=== PATIENT | male | born 1960 | race Caucasian/White ===

== ENCOUNTER → 2016-05-30 | Outpatient (CLI) | payer OTHER ==
--- NOTE | ~2016-05-30 | US37 ---
[facility] A Service of [facility] RADIOLOGY TEXT RESULTS PATIENT: ELEUTERIO NEWELL LOCATION: CNIV : 64 UNIT #: [id number] AGE: [address]: Shobha Ambrocio MD SEX: M ORDER DR: [id number] [facility] [address] [place], [place] [address] [id number] O MR#: [id number] Acc #: [id number] NAME: ELEUTERIO NEWELL : 1960 SEX: M STUDY DATE/TIME: 05/30/2016 15:40 UNIT: CNIV ROOM: STUDY DESCRIPTION: US Carotid W/Doppler Bilateral Attending Physician: Shobha Ambrocio M.D. Referring Physician: Shobha Ambrocio M.D. Ordering Physician: Shobha Ambrocio M.D. Primary Care Physician: Shobha Ambrocio M.D. MEDICAL IMAGING REPORT This report is preliminary unless electronic signature is present EXAM Carotid duplex scan, 05/30/2016 HISTORY Cervical bruit. FINDINGS The right common carotid artery has no plaque. The right internal and external carotid arteries are patent with minimal plaque. Peak systolic velocity in the distal right internal carotid artery is 93 cm/sec with an end-diastolic velocity of 38 cm/sec. The ICA/CCA ratio on the right is 1.1. Peak systolic velocity in the right external carotid artery is 117 cm/sec. The right vertebral artery is patent with antegrade flow. The left common carotid artery has no plaque. There is a small amount of heterogeneous plaque in the left carotid bulb which extends up into the proximal internal and external carotid arteries. Peak systolic velocity in the mid left internal carotid artery is 78 cm/sec with an end-diastolic velocity of 29 cm/sec. The ICA/CCA ratio on the left is 1.1. Peak systolic velocity in the left external carotid artery is 120 cm/sec. The left vertebral artery is patent with antegrade flow. IMPRESSION Small amount of plaque, but no significant stenosis (less than 50%) in the internal and external carotid arteries bilaterally. Patent vertebral arteries bilaterally with antegrade flow. Dictated by... Aaron B. Self, M.D. [facility] A Service of [facility] RADIOLOGY TEXT RESULTS PATIENT: ELEUTERIO NEWELL LOCATION: CNIV : [birth year] UNIT #: [id number] AGE: [address]: Shobha Ambrocio MD SEX: M ORDER DR: THIS IS AN ELECTRONICALLY VERIFIED REPORT Aaron Escobar M.D. at 05/31/2016 8:16 AM SBS/alex TD: 05/30/2016 23:51 JOB #: [id number] MEDICAL IMAGING REPORT Page 1 of 1 COPY
== END | disposition home or self-care (01) ==
LOC: CNIV 15:02
DX: R09.89 Other specified symptoms and signs involving the circulatory and respiratory systems (principal); I65.23 Occlusion and stenosis of bilateral carotid arteries
CPT/HCPCS: 93880